=== PATIENT | male | born 1955 | race Caucasian/White ===

== ENCOUNTER → 2022-02-25 16:10 | Outpatient (CLI) | payer MEDICARE, SELFPAY ==
--- NOTE | 2022-02-25 16:15 | DI.MRI.S_ITS ---
PROCEDURE: MR ANKLE RT WO/W CON INDICATIONS: Localized swelling, mass and lump, right lower orourke TECHNIQUE: Noncontrast sagittal T1 spin echo and T2 fast spin echo with fat saturation, axial proton density fast spin echo and T2 fast spin echo with fat saturation, axial T1 spin echo with fat saturation, coronal T1 spin echo and T2 fast spin echo with fat saturation through the ankle/hindfoot. Post-contrast axial, coronal, and sagittal T1 spin echo with fat saturation through the ankle/hindfoot. COMPARISON: None. FINDINGS: Image quality: Excellent. Bones and soft tissues: A circumscribed ovoid enhancing mass is seen within the anterior compartment musculature , likely within the extensor digitorum longus muscle, approximately 8 cm above the mortise joint which measures approximately 1.2 x 0.9 x 1.6 cm. The lesion is peripherally T2-hyperintense with central T2-hypointensity and peripheral enhancement in the area of T2-hyperintensity. Possible spindle shape is seen on sagittal images. There is osseous edema and enhancement involving the distal fibular shaft extending to the metaphysis with mild periosteal reaction. Surrounding soft tissue edema and mild enhancement is also seen. Muscular edema surrounding the distal fibula involves the peroneus brevis and longus muscles, the posterior portion of the extensor digitorum longus and probably extensor hallucis longus muscles, as well as the extensor digitorum longus muscles and possibly a portion of the soleus muscle. Chronic full-thickness cartilage loss is seen in the lateral aspect of the mortise joint with subchondral edema in the lateral talar dome and more prominently within the anterolateral tibial plafond. Degenerative changes with subchondral edema and subchondral cystic changes are also seen at the anterior medial talar dome and adjacent portion of the medial malleolus. Nonspecific calcifications are seen posterior to the mortise joint that may represent intra-articular loose bodies within a joint recess. Mild degenerative changes are seen at the talonavicular and 1st and 2nd tarsometatarsal joints. Probable chronic healed fracture deformity at the anterior process of the calcaneus without associated edema. Medial structures: The deep fibers of the deltoid ligament appear heterogeneous and there is a small nonedematous ossification along the course of the ligament, most likely related to remote prior trauma. The visualized tibiospring ligament components are grossly intact. The posterior tibialis, flexor digitorum longus, and flexor hallucis longus tendons are intact. The posterior tibial neurovascular bundle appears normal within the tarsal tunnel, without extrinsic mass effect. Lateral structures: The anterior tibial fibular ligament is not well visualized and is likely chronically torn. The posterior tibiofibular ligament is intact. The anterior talofibular ligament appears mildly attenuated and indistinct, similar to the calcaneofibular ligament, likely the related to remote prior sprains. The posterior talofibular ligament is grossly intact. Moderate peroneus brevis and longus tendinosis and mild tenosynovitis are noted. There is partial effacement of the fat in the rotator interval. Anterior structures: The tibialis anterior, extensor hallucis longus, and extensor digitorum longus tendons appear intact. The dorsal talonavicular ligament appears intact. Posterior and plantar structures: Mild thickening of the Achilles tendon is consistent with mild tendinosis. There is thickening of the proximal plantar fascia without significant surrounding edema, consistent with chronic tendinosis. No abductor digiti quinti muscle atrophy to suggest Rangel neuropathy. IMPRESSION: 1. 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 However, other benign and malignant soft tissue tumors cannot be excluded. 2. Osseous edema within the distal fibular shaft extending to the metaphysis with mild periosteal reaction and surrounding soft tissue and muscular edema. Recommend correlation with patient history. In the setting of trauma, findings could represent healing trabecular bone injury or fracture. Similar findings could be seen in the setting of osteomyelitis if there has been no prior trauma. Osseous malignancy is felt to be less likely, but cannot be entirely excluded. 3. Severe degenerative changes in the mortise joint with full-thickness cartilage loss and subchondral cystic changes and edema. Suspected small intra-articular ossified loose bodies posterior to the mortise joint. 4. Chronic grade 2 sprain of the deltoid ligament. 5. Suspected chronic high-grade or complete tearing of the anterior tibiofibular ligament. 6. Chronic grade 2 sprains of the anterior talofibular ligament and calcaneofibular ligament. 7. Moderate peroneus brevis and longus tendinosis and tenosynovitis. 8. Mild Achilles tendinosis. Mild chronic proximal plantar fasciitis. Dictated by: Chico Marroquin M.D. on 02/26/2022 at 8:55 Approved by: Chico Marroquin M.D. on 02/26/2022 at 9:19
== END ==
PROVIDERS: PCP Internal Medicine; Referring Provider Registered Nurse; Visit Provider Registered Nurse
DX: S93.421A Sprain of deltoid ligament of right ankle, initial encounter (principal); S93.491A Sprain of other ligament of right ankle, initial encounter; S93.411A Sprain of calcaneofibular ligament of right ankle, initial encounter; M65.871 Other synovitis and tenosynovitis, right ankle and foot; R22.41 Localized swelling, mass and lump, right lower limb; M72.2 Plantar fascial fibromatosis; M25.571 Pain in right ankle and joints of right foot
CPT/HCPCS: 73723

== ENCOUNTER → 2022-05-02 10:42 | Outpatient (CLI) | payer MEDICARE, SELFPAY ==
[2022-05-02 11:39] LABS: Hematocrit 40.8 % (41-53); Hemoglobin 13.7 g/dL (13.5-17.5); Mean Corpuscular HGB Conc 33.5 % (30-36); Mean Corpuscular Hemoglobin 28.9 PG (26-34); Mean Corpuscular Volume 86.4 fL (80-100); Platelet Count 234 X10^3/uL (150-400); Red Blood Cell Count 4.72 X10^6/uL (4.5-5.9); Red Cell Distribution Width 14.2 % (11.6-14.8); White Blood Cell Count 3.9 X10^3/uL (4.5-11.0)
[2022-05-02 12:01] LABS: Alanine Aminotransferase 22 IU/L (<50); Albumin 4.2 g/dL (3.5-5.0); Albumin Globulin Ratio 1.4 (1.0-2.8); Alkaline Phosphatase 71 U/L (38-126); Aspartate Aminotransferase 37 IU/L (17-59); Bilirubin Total 0.8 mg/dL (0.2-1.3); Blood Urea Nitrogen 15 mg/dL (9-20); Calcium 8.8 mg/dL (8.4-10.2); Carbon Dioxide 30 mmol/L (22-32); Chloride 103 mmol/L (98-107); Cholesterol 223 mg/dL (140-199); Estimated Glomerular Filt Rate > 60 mL/min (>60); Globulin 2.9 g/dL (1.7-4.1); Glucose 90 mg/dL (80-110); HDL Cholesterol 79 mg/dL (40-60); HEMOLYSIS < 15 (0-50); LDL Cholesterol Calculated 133 mg/dL (<100); Potassium 4.4 mmol/L (3.4-5.1); Sodium 139 mmol/L (137-145); Total Protein 7.1 g/dL (6.3-8.2); Triglycerides 54 mg/dL (35-150)
[2022-05-02 12:29] LABS: Prostate Specific Antigen 0.684 ng/mL (0.10-4.00)
[2022-05-02 13:44] LABS: TSH w/ Reflex to FT4 2.05 uIU/mL (0.47-4.68)
== END ==
PROVIDERS: PCP Internal Medicine; Referring Provider Internal Medicine; Visit Provider Internal Medicine
DX: E78.2 Mixed hyperlipidemia (principal); N40.1 Benign prostatic hyperplasia with lower urinary tract symptoms; K51.90 Ulcerative colitis, unspecified, without complications; N13.8 Other obstructive and reflux uropathy
CPT/HCPCS: 36415; 80053; 80061; 84153; 84443; 85027

== ENCOUNTER → 2023-05-27 07:16 | Outpatient (CLI) | payer MEDICARE, SELFPAY ==
[2023-05-27 08:06] LABS: Hematocrit 40.2 % (41-53); Hemoglobin 13.5 g/dL (13.5-17.5); Mean Corpuscular HGB Conc 33.5 % (30-36); Mean Corpuscular Hemoglobin 29.3 PG (26-34); Mean Corpuscular Volume 87.5 fL (80-100); Platelet Count 188 X10^3/uL (150-400); Red Cell Distribution Width 14.1 % (11.6-14.8); White Blood Cell Count 4.4 X10^3/uL (4.5-11.0)
[2023-05-27 08:52] LABS: Alanine Aminotransferase 18 IU/L (<50); Albumin Globulin Ratio 1.4 (1.0-2.8); Alkaline Phosphatase 51 U/L (38-126); Aspartate Aminotransferase 28 IU/L (17-59); BUN Creatinine Ratio 19.5 (6-22); Bilirubin Total 1.1 mg/dL (0.2-1.3); Blood Urea Nitrogen 15 mg/dL (9-20); Calcium 8.8 mg/dL (8.4-10.2); Carbon Dioxide 31 mmol/L (22-32); Chloride 104 mmol/L (98-107); Cholesterol 225 mg/dL (140-199); Estimated Glomerular Filt Rate > 60 mL/min (>60); Globulin 2.8 g/dL (1.7-4.1); Glucose 89 mg/dL (80-110); HDL Cholesterol 83 mg/dL (40-60); HEMOLYSIS < 15 (0-50); LDL Cholesterol Calculated 129 mg/dL (<100); Potassium 4.4 mmol/L (3.4-5.1); Sodium 137 mmol/L (137-145); Total Protein 6.8 g/dL (6.3-8.2); Triglycerides 66 mg/dL (35-150)
[2023-05-27 09:14] LABS: TSH w/ Reflex to FT4 2.91 uIU/mL (0.47-4.68)
[2023-05-27 09:15] LABS: Prostate Specific Antigen 0.775 ng/mL (0.10-4.00)
== END ==
PROVIDERS: PCP Internal Medicine; Referring Provider Internal Medicine; Visit Provider Internal Medicine
DX: E78.2 Mixed hyperlipidemia (principal); N40.1 Benign prostatic hyperplasia with lower urinary tract symptoms; N13.8 Other obstructive and reflux uropathy; K51.90 Ulcerative colitis, unspecified, without complications
CPT/HCPCS: 36415; 80053; 80061; 84153; 84443; 85027

== ENCOUNTER → 2024-03-04 15:15 | Outpatient (CLI) | payer MEDICARE, SELFPAY | LOC: RESP 15:16 | PROVIDERS: PCP Internal Medicine; Referring Provider Internal Medicine; Visit Provider Internal Medicine | DX: R05.9 Cough, unspecified (principal); J98.8 Other specified respiratory disorders | CPT/HCPCS: 94060; 94726; 94729 ==

== ENCOUNTER → 2024-03-08 16:04 | Outpatient (CLI) | payer MEDICARE, SELFPAY ==
--- NOTE | 2024-03-08 16:05 | DI.RAD.S_ITS ---
PROCEDURE: XR CHEST 2V INDICATIONS: cough TECHNIQUE: 2 views of the chest were acquired. COMPARISON: None. FINDINGS: Surgical changes and devices: None. Lungs and pleura: Lungs are clear. Probable emphysematous change. No pleural effusions or pneumothorax. Mediastinum: Mediastinal contours are normal. Heart size is normal. Bones and chest wall: No suspicious bony abnormalities. Soft tissues appear unremarkable. IMPRESSION: Probable emphysematous change. No acute pulmonary process. Dictated by: Miguel Jimenez M.D. on 03/08/2024 at 17:36 Approved by: Miguel Jimenez M.D. on 03/08/2024 at 17:39
== END ==
PROVIDERS: PCP Internal Medicine; Referring Provider Internal Medicine; Visit Provider Internal Medicine
DX: R05.9 Cough, unspecified (principal)
CPT/HCPCS: 71046

== ENCOUNTER → 2024-06-29 16:21 | Outpatient (CLI) | payer MEDICARE, SELFPAY ==
[2024-06-29 18:04] LABS: Alanine Aminotransferase 29 IU/L (<50); Albumin 4.2 g/dL (3.5-5.0); Albumin Globulin Ratio 1.6 (1.0-2.8); Alkaline Phosphatase 49 U/L (38-126); Aspartate Aminotransferase 33 IU/L (17-59); Bilirubin Total 0.8 mg/dL (0.2-1.3); Bilirubin Unconjugated 0.5 mg/dL (0.0-1.1); Globulin 2.6 g/dL (1.7-4.1); HEMOLYSIS < 15 (0-50); Total Protein 6.8 g/dL (6.3-8.2)
== END ==
PROVIDERS: PCP Internal Medicine; Referring Provider Internal Medicine; Visit Provider Internal Medicine
DX: B35.1 Tinea unguium (principal)
CPT/HCPCS: 36415; 80076

== ENCOUNTER → 2024-07-20 07:28 | Outpatient (CLI) | payer MEDICARE, SELFPAY ==
[2024-07-20 08:53] LABS: Cholesterol 160 mg/dL (140-199); HDL Cholesterol 103 mg/dL (40-60); LDL Cholesterol Calculated 49 mg/dL (<100); Triglycerides 42 mg/dL (35-150)
[2024-07-20 19:20] LABS: Prostate Specific Antigen 0.785 ng/mL (0.10-4.00)
== END ==
PROVIDERS: PCP Internal Medicine; Referring Provider Internal Medicine; Visit Provider Internal Medicine
DX: E78.2 Mixed hyperlipidemia (principal); N40.1 Benign prostatic hyperplasia with lower urinary tract symptoms; N13.8 Other obstructive and reflux uropathy
CPT/HCPCS: 36415; 80061; 84153

== ENCOUNTER → 2024-10-11 16:14 | Outpatient (CLI) | payer MEDICARE, SELFPAY ==
--- NOTE | 2024-10-11 16:15 | DI.RAD.S_ITS ---
PROCEDURE: XR CHEST 2V INDICATIONS: cough/asthma TECHNIQUE: 2 views of the chest were acquired. COMPARISON: [facility], CR, XR CHEST 2V, 03/08/2024, 16:04. FINDINGS: Surgical changes and devices: None. Lungs and pleura: Lungs are clear. No pleural effusions or pneumothorax. Likely accessory right azygos lobe. Mediastinum: Mediastinal contours are normal. Heart size is normal. Bones and chest wall: No suspicious bony abnormalities. Soft tissues appear unremarkable. IMPRESSION: No acute cardiothoracic process. Dictated by: Tevin Villasenor M.D. on 10/11/2024 at 19:17 Approved by: Tevin Villasenor M.D. on 10/11/2024 at 19:18
== END ==
PROVIDERS: PCP Internal Medicine; Referring Provider Internal Medicine; Visit Provider Internal Medicine
DX: J45.20 Mild intermittent asthma, uncomplicated (principal)
CPT/HCPCS: 71046

== ENCOUNTER → 2024-11-16 09:26 | Outpatient (CLI) | payer MEDICARE, SELFPAY ==
--- NOTE | 2024-11-16 09:27 | DI.RAD.S_ITS ---
PROCEDURE: XR KNEE LT 3V INDICATIONS: left knee pain, no trauma TECHNIQUE: 3 views of the knee were acquired. COMPARISON: None. FINDINGS: Bones: No fractures or dislocations. No suspicious bony lesions. Tricompartmental joint space narrowing with associated osteophytosis. Soft tissues: Moderate joint effusion, likely reactive. No suspicious soft tissue calcifications. IMPRESSION: Tricompartmental joint space narrowing with associated osteophytosis. Dictated by: Bartolome Vasquez M.D. on 11/16/2024 at 12:28 Approved by: Bartolome Vasquez M.D. on 11/16/2024 at 12:29
== END ==
PROVIDERS: PCP Internal Medicine; Referring Provider Internal Medicine; Visit Provider Internal Medicine
DX: M22.2X2 Patellofemoral disorders, left knee (principal); M25.462 Effusion, left knee
CPT/HCPCS: 73562

== ENCOUNTER → 2025-01-17 10:54 | Outpatient (CLI) | payer MEDICARE, SELFPAY ==
--- NOTE | 2025-01-17 10:55 | DI.MRI.S_ITS ---
PROCEDURE: MR KNEE LT WO CON INDICATIONS: left knee pain TECHNIQUE: Noncontrast sagittal PD fast spin echo and T2 fast spin echo with fat saturation, sagittal 3-D FLASH with fat saturation; coronal T1 spin echo and PD fast spin echo with fat saturation, and axial PD fast spin echo with fat saturation through the knee. COMPARISON: None. FINDINGS: Image quality: Excellent. Menisci: Medial extrusion of the medial meniscus. There is linear oblique and vertically oriented high T2 signal intensity within the middle and peripheral thirds of the posterior horn medial meniscus, demonstrating inferior articular surface extension, indicating complex tearing. Lateral meniscus is intact. Cruciate ligaments: The anterior and posterior cruciate ligaments appear intact. Medial structures: The medial collateral ligament appears intact, and demonstrates moderate surrounding T2 signal elevation. Visualized portions of the pes anserinus tendons appear normal. There is mild T2 signal elevation within the semimembranosus tendon at the tibial insertion site. No abnormal bursal fluid. Lateral structures: The lateral collateral ligament, long and short heads of the biceps femoris tendon appear intact. The popliteus tendon appears normal. Iliotibial band appears normal. Anterior structures: The quadriceps and patellar tendons appear intact. Patellar alignment is normal. No femoral trochlear dysplasia or ventral trochlear prominence. No edema in the infrapatellar fat pad. Bones and cartilage: No bone marrow contusions or fractures. There is moderate ill-defined T2 signal elevation within the mid weight-bearing aspect of the medial femoral condyle as well as the mid/anterior weight-bearing aspect of the medial tibial plateau. There is severe articular cartilage loss diffusely overlying the weight-bearing aspects of the medial femoral condyle and medial tibial plateau. Articular cartilage fibrillation overlies the patellar apex. Joint space: There is a moderate knee joint effusion and a small Brown's cyst. Multiple intra-articular loose bodies are present, largest of which is in the posterior central aspect of the knee joint measuring 10 mm. Normal appearing synovial plicae are incidentally noted. IMPRESSION: 1. Tricompartmental osteoarthritis with associated articular cartilage loss. 2. Medial meniscal tearing. 3. Knee joint effusion, Brown's cyst, and intra-articular loose bodies. Dictated by: Dino Pagan M.D. on 01/17/2025 at 12:58 Approved by: Dino Pagan M.D. on 01/17/2025 at 13:01
== END ==
PROVIDERS: PCP Internal Medicine; Referring Provider Internal Medicine; Visit Provider Internal Medicine
DX: S83.242A Other tear of medial meniscus, current injury, left knee, initial encounter (principal); M17.12 Unilateral primary osteoarthritis, left knee; M25.462 Effusion, left knee; M71.22 Synovial cyst of popliteal space [Baker], left knee
CPT/HCPCS: 73721

== ENCOUNTER → 2025-02-14 14:32 | Outpatient (CLI) | payer MEDICARE, SELFPAY ==
--- NOTE | 2025-02-14 14:36 | EKG_ITS ---
[place] [id number] [address] [place] [id number] Test Date: 2025-02-14 Pat Name: Wesley Rahman Department: 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
[2025-02-14 15:58] LABS: Add Manual Diff / Slide Review NO; Basophils Absolute Auto 100 /uL (0-100); Basophils Percent Auto 1.3 % (0-2); Eosinophils Absolute Auto 300 /uL (0-450); Eosinophils Percent Auto 6.8 % (2-4); Hematocrit 38.6 % (41-53); Lymphocytes Absolute Auto 1400 /uL (1100-4500); Lymphocytes Percent Auto 31.4 % (25-40); Mean Corpuscular HGB Conc 33.6 % (30-36); Mean Corpuscular Hemoglobin 29.2 PG (26-34); Monocytes Absolute Auto 400 /uL (0-900); Monocytes Percent Auto 8.5 % (3-14); Neutrophils Absolute Auto 2300 /uL (1500-7000); Platelet Count 184 X10^3/uL (150-400); Red Blood Cell Count 4.44 X10^6/uL (4.5-5.9); White Blood Cell Count 4.4 X10^3/uL (4.5-11.0)
[2025-02-14 16:02] LABS: BUN Creatinine Ratio 29.3 (6-22); Blood Urea Nitrogen 22 mg/dL (9-20); Calcium 8.7 mg/dL (8.4-10.2); Carbon Dioxide 28 mmol/L (22-32); Chloride 104 mmol/L (98-107); Estimated Glomerular Filt Rate > 60 mL/min (>60); Glucose 85 mg/dL (70-99); HEMOLYSIS < 15 (0-50); Potassium 4.5 mmol/L (3.4-5.1); Sodium 137 mmol/L (137-145)
[2025-02-14 16:17] LABS: Hemoglobin A1C% w Est Avg Glu 5.2 % (4.0-6.0)
== END ==
LOC: RESP 14:33
PROVIDERS: PCP Internal Medicine; Referring Provider Orthopaedic Surgery Foot and Ankle Surgery; Visit Provider Orthopaedic Surgery Foot and Ankle Surgery
DX: Z01.812 Encounter for preprocedural laboratory examination (principal); Z01.818 Encounter for other preprocedural examination; R73.9 Hyperglycemia, unspecified
CPT/HCPCS: 36415; 80048; 83036; 85025; 93005

== ENCOUNTER → 2025-07-05 08:30 | Outpatient (CLI) | payer MEDICARE, SELFPAY ==
[2025-07-05 10:12] LABS: Hematocrit 39.9 % (41-53); Hemoglobin 13.3 g/dL (13.5-17.5); Mean Corpuscular HGB Conc 33.3 % (30-36); Mean Corpuscular Hemoglobin 29.4 PG (26-34); Mean Corpuscular Volume 88.1 fL (80-100); Platelet Count 192 X10^3/uL (150-400)
[2025-07-05 10:20] LABS: HEMOLYSIS < 15 (0-50); Iron 56 ug/dL (49-181)
[2025-07-05 10:30] LABS: Alanine Aminotransferase 18 IU/L (<50); Albumin 4.1 g/dL (3.5-5.0); Albumin Globulin Ratio 1.6 (1.0-2.8); Alkaline Phosphatase 68 U/L (38-126); Blood Urea Nitrogen 16 mg/dL (9-20); Calcium 9.0 mg/dL (8.4-10.2); Carbon Dioxide 27 mmol/L (22-32); Chloride 104 mmol/L (98-107); Cholesterol 153 mg/dL (140-199); Estimated Glomerular Filt Rate > 60 mL/min (>60); Globulin 2.5 g/dL (1.7-4.1); Glucose 85 mg/dL (70-99); HDL Cholesterol 97 mg/dL (40-60); HEMOLYSIS < 15 (0-50); Potassium 5.1 mmol/L (3.4-5.1); Sodium 138 mmol/L (137-145); Total Protein 6.6 g/dL (6.3-8.2); Triglycerides 34 mg/dL (35-150)
[2025-07-05 10:31] LABS: Percent Iron Saturation 19 % (20-50); Total Iron Binding Capacity 293 ug/dL (261-462); Transferrin 243 mg/dL (206-381)
[2025-07-05 10:53] LABS: TSH w/ Reflex to FT4 2.40 uIU/mL (0.47-4.68)
[2025-07-05 10:59] LABS: Prostate Specific Antigen 1.04 ng/mL (0.10-4.00)
[2025-07-05 11:04] LABS: Ferritin 31 ng/mL (18-464)
[2025-07-05 11:11] LABS: Vitamin B12 Reflex MMA if <400 446 pg/mL (239-931)
== END ==
PROVIDERS: PCP Internal Medicine; Referring Provider Internal Medicine; Visit Provider Internal Medicine
DX: N13.8 Other obstructive and reflux uropathy (principal); K51.819 Other ulcerative colitis with unspecified complications; E78.2 Mixed hyperlipidemia; N40.1 Benign prostatic hyperplasia with lower urinary tract symptoms; E53.8 Deficiency of other specified B group vitamins; D64.9 Anemia, unspecified
CPT/HCPCS: 36415; 80053; 80061; 82607; 82728; 83540; 83550; 84153; 84443; 85027

== ENCOUNTER → 2025-10-04 14:26 | Outpatient (CLI) | payer MEDICARE, SELFPAY ==
--- NOTE | 2025-10-04 14:27 | DI.RAD.S_ITS ---
PROCEDURE: XR SHOULDER LT MIN 2V INDICATIONS: pain, no trauma TECHNIQUE: 3 views of the shoulder were acquired. COMPARISON: None. FINDINGS: Bones: No fractures or dislocations. Moderate acromioclavicular and severe glenohumeral joint degeneration. Large inferior osteophyte off the humeral head. No suspicious bony lesions. Visualized ribs appear intact. Soft tissues: No suspicious soft tissue calcifications. IMPRESSION: Moderate acromioclavicular and severe glenohumeral joint degeneration. Dictated by: Josh Francis M.D. on 10/05/2025 at 17:00 Approved by: Josh Francis M.D. on 10/05/2025 at 17:01
== END ==
PROVIDERS: PCP Internal Medicine; Referring Provider Internal Medicine; Visit Provider Internal Medicine
DX: M19.012 Primary osteoarthritis, left shoulder (principal); M75.82 Other shoulder lesions, left shoulder
CPT/HCPCS: 73030